=== PATIENT | male | born 1945 | race Caucasian/White ===

== ENCOUNTER 2016-10-05 18:33 | Emergency (ER) | payer MEDICARE, OTHER ==
[~2016-10-05 18:33] MED LIST: AUGMENTIN TAB875 MG PO; BUDESONIDE EC3 MG PO; BUPROPION HCL100 MG PO; ECOTRIN81 MG PO; FINASTERIDE5 MG PO; ISOSORBIDE DINI30 MG PO; LIORESAL TAB 1010 MG PO; NITROSTAT; NORVASC 5 MG TAB5 MG PO; REQUIP2 MG PO; SIMVASTATIN20 MG PO; TENORMIN 50 MG50 MG PO; TERAZOSIN HCL10 MG PO; VENTOLIN/PROVE0.5 ML INH; ZETIA10 MG PO
[2016-10-05 20:52] LABS: HEMOGLOBIN 13.4 gm/dl (14.0-17.5); RED BLOOD COUNT 4.41 M/UL (4.20-5.50); WHITE BLOOD COUNT 7.9 K/UL (4.5-11.0)
[2016-10-05 21:09] LABS: BUN/CREATININE RATIO 11 (0-10)
[2017-01-01] MEDS ORDERED: VENTOLIN HFA 66.7 GM INH (01:57)
[2017-01-01] MEDS ORDERED: LEVAQUIN750 MG PO (01:58)
[2017-01-01] MEDS ORDERED: MEDROL DOSEPAK 24 MG PO (01:59)
[2017-01-01] MEDS ORDERED: TRAMADOL HCL50 MG PO (02:00)
[2017-01-01] MEDS ORDERED: IMDUR ER TAB 3030 MG PO (12:06)
[2017-01-03] MEDS ORDERED: MUCINEX600 MG PO (12:58)
== END 2016-10-06 00:05 | disposition home or self-care (01) ==
LOC: ER1 18:33
PROVIDERS: Physician Assistant
DX: J44.0 Chronic obstructive pulmonary disease with (acute) lower respiratory infection (principal); J20.9 Acute bronchitis, unspecified; C34.90 Malignant neoplasm of unspecified part of unspecified bronchus or lung; I11.9 Hypertensive heart disease without heart failure; Z88.6 Allergy status to analgesic agent; Z79.899 Other long term (current) drug therapy
CPT/HCPCS: 36415; 70491; 71260; 80053; 84484; 85025; 85610; 85730; 87070; 87205; 93005; 99285; J7040; J7050; Q9963

== ENCOUNTER 2016-12-27 21:35 | Emergency (ER) | payer MEDICARE, OTHER ==
[2016-12-28 05:12] LABS: HEMOGLOBIN 13.6 gm/dl (14.0-17.5); RED BLOOD COUNT 4.46 M/UL (4.20-5.50); WHITE BLOOD COUNT 9.5 K/UL (4.5-11.0)
[2016-12-28 06:01] LABS: BUN/CREATININE RATIO 12 (0-10)
== END 2016-12-28 08:38 | disposition home or self-care (01) ==
LOC: ER1 21:35
PROVIDERS: Physician Assistant
DX: C34.90 Malignant neoplasm of unspecified part of unspecified bronchus or lung (principal); J90 Pleural effusion, not elsewhere classified; I25.2 Old myocardial infarction; J44.9 Chronic obstructive pulmonary disease, unspecified; I10 Essential (primary) hypertension; Z87.891 Personal history of nicotine dependence; Z88.6 Allergy status to analgesic agent; Z95.5 Presence of coronary angioplasty implant and graft
CPT/HCPCS: 36415; 36600; 71020; 80053; 82803; 84484; 85025; 85379; 93005; 94664; 96374; 99285; J2930; J7050; Q9963